=== PATIENT | female | born 1965 | race Caucasian/White ===

== ENCOUNTER 2016-09-10 13:38 | Emergency (ER) | payer BC ==
[~2016-09-10] VITALS: Ht 165.1 cm; Wt 86.1 kg
[~2016-09-10 13:38] MED LIST: CIPROFLOXACIN500 M1 PO; COUMADIN5 MG PO; CYCLOBENZAPRINE10 MG PO; ENDOCET 5-3251 EACH PO; LEXAPRO20 MG PO; LORTAB 7.5/51 TABLET PO; MILLIPRED DP5 MG PO; MOTRIN600 MG PO; MOTRIN800 MG PO; PERCOCET 5/31 TABLET PO; PROMETHAZINE HC25 M1 PO; SKELAXIN800 MG PO; STADOL NASAL2.5 ML NS; XANAX1 MG PO; ZOFRAN4 MG PO
[2016-09-10] MEDS ORDERED: TRAMADOL HCL50 MG PO (14:39)
[2016-09-10] MEDS ORDERED: MOTRIN600 MG PO (14:39)
[2016-09-10] MEDS ORDERED: PREDNISONE50 MG PO (14:39)
[2016-09-10 15:07] VITALS: BP 108/76
== END 2016-09-10 15:07 | disposition home or self-care (01) ==
LOC: EME 13:38
DX: M54.5 Low back pain (principal); Z86.718 Personal history of other venous thrombosis and embolism; Z88.6 Allergy status to analgesic agent
CPT/HCPCS: 99281; 99283

== ENCOUNTER 2017-04-28 19:12 | Emergency (ER) | payer BC ==
[~2017-04-28] VITALS: Ht 165.1 cm; Wt 88.1 kg
[~2017-04-28 19:12] MED LIST changes: +PREDNISONE50 MG PO; +TRAMADOL HCL50 MG PO
[2017-04-28] MEDS ORDERED: MEDROL DOSEPAK4 MG PO (21:53)
[2017-04-28] MEDS ORDERED: PERCOCET 5/31 TABLET PO (21:53)
[2017-04-28 22:05] VITALS: BP 117/75
== END 2017-04-28 22:05 | disposition home or self-care (01) ==
LOC: EME 19:12 → EXP 19:12
DX: M79.605 Pain in left leg (principal); F41.9 Anxiety disorder, unspecified; F32.9 Major depressive disorder, single episode, unspecified; Z86.718 Personal history of other venous thrombosis and embolism; Z79.01 Long term (current) use of anticoagulants; Z88.5 Allergy status to narcotic agent; Z88.8 Allergy status to other drugs, medicaments and biological substances
CPT/HCPCS: 73564; 93971; 99281; 99284

== ENCOUNTER 2017-06-20 00:39 | Inpatient (IN) | payer BC ==
[~2017-06-20] VITALS: Ht 165.1 cm; Wt 87.1 kg
[~2017-06-20 00:39] MED LIST changes: +MEDROL DOSEPAK4 MG PO
[2017-06-20 01:14] LABS: HEMOGLOBIN 13.7 G/DL (11.9-15.5); MCH 31.2 PG (29.0-34.0); MCHC 35.1 G/DL (30.0-36.0); MCV 88.8 FL (83-99); PLATELET COUNT 265 K/uL (156-360); RBC DIS.WIDTH-CV 12.2 % (11.8-14.6); RBC DIS.WIDTH-SD 39.9 % (39-53); RED BLOOD COUNT 4.39 M/uL (3.80-5.20)
[2017-06-20 01:22] LABS: CHLORIDE 107 mEq/L (99-109); POTASSIUM 4.3 mEq/L (3.7-5.4)
[2017-06-20 01:23] LABS: SODIUM 138 mEq/L (136-147)
[2017-06-20 01:24] LABS: GLUCOSE 147 mg/dL (70-99)
[2017-06-20 01:28] LABS: CREATININE 0.8 mg/dL (0.6-1.3); GFR ESTIMATE (CALCULATED) > 59 mL/min/
[2017-06-20 01:29] LABS: UREA NITROGEN (BUN) 15 mg/dL (9-23)
[2017-06-20 01:33] LABS: TROP-I INTERPRETATION NEGATIVE; TROPONIN-I < 0.01 ng/mL (0.0-0.30)
[2017-06-20 06:29] LABS: INTER. NORMALIZED RATIO 1.1
[2017-06-20 06:32] LABS: PTT 29.6 SEC (25-37)
[2017-06-20 09:48] LABS: TROP-I INTERPRETATION NEGATIVE; TROPONIN-I < 0.01 ng/mL (0.0-0.30)
[2017-06-20] MEDS ORDERED: ALPRAZOLAM ER1 MG PO (10:28)
[2017-06-20] MEDS ORDERED: SUMATRIPTAN SU100 MG PO (10:37)
[2017-06-20] MEDS ORDERED: PROMETHAZINE HC25 M1 PO (10:38)
[2017-06-20 13:07] LABS: INTER. NORMALIZED RATIO 1.3
[2017-06-20 14:28] LABS: PTT 156.2 SEC (25-37)
[2017-06-20 15:41] LABS: TROP-I INTERPRETATION NEGATIVE; TROPONIN-I < 0.01 ng/mL (0.0-0.30)
[2017-06-20 17:36] VITALS: BP 150/76
[2017-06-20 20:22] VITALS: BP 131/67
[2017-06-21] VITALS (8 sets, daily range): BP systolic 117–133; BP diastolic 70–80
[2017-06-21 04:22] LABS: HEMATOCRIT 35.6 % (36.0-46.0); HEMOGLOBIN 12.1 G/DL (11.9-15.5); MCH 30.9 PG (29.0-34.0); PLATELET COUNT 236 K/uL (156-360); RBC DIS.WIDTH-CV 12.9 % (11.8-14.6); RED BLOOD COUNT 3.91 M/uL (3.80-5.20); WHITE BLOOD COUNT 8.4 K/uL (4.1-10.2)
[2017-06-21 04:46] LABS: ALBUMIN 3.3 g/dL (3.2-4.8); CHLORIDE 113 mEq/L (99-109); POTASSIUM 4.1 mEq/L (3.7-5.4); SODIUM 139 mEq/L (136-147)
[2017-06-21 04:48] LABS: GLUCOSE 95 mg/dL (70-99); TOTAL PROTEIN 5.7 g/dL (6.4-8.3)
[2017-06-21 04:50] LABS: TOTAL BILIRUBIN 0.4 mg/dL (0.0-1.0)
[2017-06-21 04:52] LABS: ALKALINE PHOSPHATASE 59 IU/L (3-129); CREATININE 0.7 mg/dL (0.6-1.3); GFR ESTIMATE (CALCULATED) > 59 mL/min/
[2017-06-21 04:53] LABS: UREA NITROGEN (BUN) 12 mg/dL (9-23)
[2017-06-21 04:54] LABS: AST (GOT) 16 IU/L (2-34)
[2017-06-21 04:55] LABS: ALT (GPT) 14 IU/L (3-49)
[2017-06-21 21:45] LABS: STOOL OCCULT BLD 1ST SPECIMEN NEGATIVE
[2017-06-22 04:49] VITALS: BP 108/71
[2017-06-22 07:57] VITALS: BP 127/80
[2017-06-22] MEDS ORDERED: XARELTO15 MG PO (10:25)
[2017-06-22] MEDS ORDERED: XARELTO20 MG PO ×2 (10:25→10:46)
[2017-06-25 15:36] LABS: ACTIVATED PROTEIN C RESIST+ 4.4 ratio (>=2.1); DRVVT Mixing Study Interp Not Indicated (()); FACTOR VIII ACTIVITY+ 150 % (50-180); PROTEIN C FUNCTIONAL ACTIVITY+ 113 % (70-180); PTT-LA 198 sec (<=40); Protein S, Free 125 % normal (50-147); dRVVT Screen 34 sec (<=45)
[2017-06-26 11:14] LABS: ANTITHROMBIN III ACTIVITY+ 107 % activi (80-120)
== END 2017-06-22 11:23 | disposition home or self-care (01) | DRG 175 ==
LOC: EME 00:39 → 2EAST 08:34 → EDOF 08:34 → ENRESERV 08:36 → 2EAST 17:16
PROVIDERS: Internal Medicine; Physician Assistant
DX: I26.99 Other pulmonary embolism without acute cor pulmonale (principal); J18.9 Pneumonia, unspecified organism; I82.401 Acute embolism and thrombosis of unspecified deep veins of right lower extremity; J98.11 Atelectasis; F41.9 Anxiety disorder, unspecified; G43.909 Migraine, unspecified, not intractable, without status migrainosus; F32.9 Major depressive disorder, single episode, unspecified; Z79.01 Long term (current) use of anticoagulants; Z86.711 Personal history of pulmonary embolism; Z86.718 Personal history of other venous thrombosis and embolism
CPT/HCPCS: 71046; 71275; 80048; 80053; 81240 90; 82272; 83090 90; 83880; 84484; 85027; 85240 90; 85300 90; 85303 90; 85305 90; 85306 90; 85307 90; 85610; 85613 90; 85730; 85730 90; 86146 90; 86147 90; 93005; 93306; 93970; 99281; 99285; J7030; Q0169

== ENCOUNTER → 2017-08-23 | Outpatient (CLI) | payer BC ==
[~2017-08-23] VITALS: Ht 165.1 cm; Wt 86.2 kg
[~2017-08-23] MED LIST changes: +ALPRAZOLAM ER1 MG PO; +SUMATRIPTAN SU100 MG PO; +XARELTO15 MG PO; +XARELTO20 MG PO
[2017-08-23 13:43] LABS: HEMATOCRIT 39.8 % (36.0-46.0); HEMOGLOBIN 13.8 G/DL (11.9-15.5); MCH 30.8 PG (29.0-34.0); MCHC 34.7 G/DL (30.0-36.0); MCV 88.8 FL (83-99); RBC DIS.WIDTH-CV 11.9 % (11.8-14.6); RBC DIS.WIDTH-SD 38.1 % (39-53); RED BLOOD COUNT 4.48 M/uL (3.80-5.20); WHITE BLOOD COUNT 3.9 K/uL (4.1-10.2)
[2017-08-23 13:44] LABS: PLATELET COUNT 71 K/uL (156-360)
== END | disposition home or self-care (01) ==
LOC: AMB 12:36
PROVIDERS: Internal Medicine Pulmonary Disease
DX: R91.8 Other nonspecific abnormal finding of lung field (principal); I26.99 Other pulmonary embolism without acute cor pulmonale; Z79.01 Long term (current) use of anticoagulants; Z86.718 Personal history of other venous thrombosis and embolism; G43.909 Migraine, unspecified, not intractable, without status migrainosus; Z82.5 Family history of asthma and other chronic lower respiratory diseases; Z82.49 Family history of ischemic heart disease and other diseases of the circulatory system; Z82.3 Family history of stroke; Z80.8 Family history of malignant neoplasm of other organs or systems
CPT/HCPCS: 85027; 85730; 87070; 87116; 87205; 87206; 87278; 88108; 88173; J0461; J2250; J3010

== ENCOUNTER → 2017-09-30 | Outpatient (CLI) | payer BC | END | disposition home or self-care (01) | LOC: CDC 11:49 | DX: R94.31 Abnormal electrocardiogram [ECG] [EKG] (principal) | CPT/HCPCS: 93000 ==

== ENCOUNTER 2017-10-11 10:48 | Day surgery (SDC) | payer BC ==
[~2017-10-11] VITALS: Ht 165.1 cm; Wt 87.1 kg
[~2017-10-11 10:48] MED LIST changes: +IMITREX50 MG PO; +LOVENOX30 MG/0.3 SC
[2017-10-11 11:35] LABS: HEMATOCRIT 40.9 % (36.0-46.0); HEMOGLOBIN 13.5 G/DL (11.9-15.5); MCH 29.5 PG (29.0-34.0); MCV 89.3 FL (83-99); PLATELET COUNT 298 K/uL (156-360); RBC DIS.WIDTH-SD 39.2 % (39-53); RED BLOOD COUNT 4.58 M/uL (3.80-5.20); WHITE BLOOD COUNT 6.1 K/uL (4.1-10.2)
[2017-10-11 11:36] VITALS: BP 128/70
[2017-10-11 11:39] LABS: INTER. NORMALIZED RATIO 1.1
[2017-10-11 11:42] LABS: PTT 31.4 SEC (25-37)
[2017-10-11] MEDS ORDERED: MOTRIN600 MG PO (15:58)
[2017-10-11 16:25] VITALS: BP 131/69
[2017-10-11 17:24] VITALS: BP 133/63
== END 2017-10-11 17:32 | disposition home or self-care (01) ==
LOC: SDC 10:48
PROVIDERS: Thoracic Surgery (Cardiothoracic Vascular Surgery)
PROC: 0BB58ZX Excision of Right Middle Lobe Bronchus, Via Natural or Artificial Opening Endoscopic, Diagnostic (ICD-10-PCS; principal; 2017-10-11)
PROC: 0BD58ZX Extraction of Right Middle Lobe Bronchus, Via Natural or Artificial Opening Endoscopic, Diagnostic (ICD-10-PCS; principal; 2017-10-11)
PROC: 07B74ZX Excision of Thorax Lymphatic, Percutaneous Endoscopic Approach, Diagnostic (ICD-10-PCS; principal; 2017-10-11)
DX: C34.2 Malignant neoplasm of middle lobe, bronchus or lung (principal); C77.1 Secondary and unspecified malignant neoplasm of intrathoracic lymph nodes; Z86.718 Personal history of other venous thrombosis and embolism; Z86.711 Personal history of pulmonary embolism; G43.909 Migraine, unspecified, not intractable, without status migrainosus; Z79.01 Long term (current) use of anticoagulants; Z88.5 Allergy status to narcotic agent; Z88.8 Allergy status to other drugs, medicaments and biological substances; Z82.5 Family history of asthma and other chronic lower respiratory diseases; Z82.49 Family history of ischemic heart disease and other diseases of the circulatory system; Z80.8 Family history of malignant neoplasm of other organs or systems; Z82.3 Family history of stroke
CPT/HCPCS: 85027; 85610; 85730; 86850; 86900; 86901; 88108; 88305; 88341 TC; 88342 TC; J0330; J0690; J1100; J1885; J2250; J2405; J2710; J3010; J7643

== ENCOUNTER 2017-12-14 00:22 | Inpatient (IN) | payer BC ==
[~2017-12-14] VITALS: Ht 165.1 cm; Wt 86.6 kg
[~2017-12-14 00:22] MED LIST changes: +OXYCONTIN10 MG PO; +PRILOSEC OTC20 MG PO; +ROXICODONE5 MG PO
[2017-12-14 00:58] LABS: CHLORIDE 109 mEq/L (99-109); SODIUM 139 mEq/L (136-147)
[2017-12-14 00:59] LABS: GLUCOSE 157 mg/dL (70-99)
[2017-12-14 01:03] LABS: CREATININE 0.8 mg/dL (0.6-1.3); GFR ESTIMATE (CALCULATED) > 59 mL/min/
[2017-12-14 01:04] LABS: HEMATOCRIT 29.5 % (36.0-46.0); HEMOGLOBIN 10.7 G/DL (11.9-15.5); MCHC 36.3 G/DL (30.0-36.0); MCV 85.5 FL (83-99); POTASSIUM 3.2 mEq/L (3.7-5.4); RBC DIS.WIDTH-CV 12.4 % (11.8-14.6); RBC DIS.WIDTH-SD 35.8 % (39-53); RED BLOOD COUNT 3.45 M/uL (3.80-5.20); UREA NITROGEN (BUN) 14 mg/dL (9-23); WHITE BLOOD COUNT 0.9 K/uL (4.1-10.2)
[2017-12-14 01:13] LABS: TROP-I INTERPRETATION NEGATIVE; TROPONIN-I < 0.01 ng/mL (0.0-0.30)
[2017-12-14 01:38] LABS: PLATELET COUNT 128 K/uL (156-360)
[2017-12-14 04:53] LABS: BAND NEUTROPHILS 4.4 % (0-8.0); SEG.NEUTROPHILS 76.7 % (46.0-76.0)
[2017-12-14 04:54] LABS: BASOPHILS 1.3 %; GIANT PLATELETS 1+; LYMPHOCYTES 9.7 % (15.0-45.0); PLAT.SUFFICIENCY ADEQUATE
[2017-12-14 06:37] VITALS: BP 105/74
[2017-12-14 07:39] LABS: TROP-I INTERPRETATION NEGATIVE; TROPONIN-I < 0.01 ng/mL (0.0-0.30)
[2017-12-14 07:50] VITALS: BP 103/62
[2017-12-14] MEDS ORDERED: XANAX1 MG PO (11:48)
[2017-12-14] MEDS ORDERED: ZOFRAN8 MG PO (11:54)
[2017-12-14 13:16] LABS: TROP-I INTERPRETATION NEGATIVE; TROPONIN-I < 0.01 ng/mL (0.0-0.30)
[2017-12-14 16:06] VITALS: BP 124/66
[2017-12-14 21:20] VITALS: BP 113/68
[2017-12-15] VITALS (8 sets, daily range): BP systolic 102–115; BP diastolic 54–75
[2017-12-15 06:56] LABS: HEMATOCRIT 28.5 % (36.0-46.0); HEMOGLOBIN 9.5 G/DL (11.9-15.5); MCHC 33.3 G/DL (30.0-36.0); MCV 89.9 FL (83-99); PLATELET COUNT 103 K/uL (156-360); RBC DIS.WIDTH-CV 13.2 % (11.8-14.6); RED BLOOD COUNT 3.17 M/uL (3.80-5.20); WHITE BLOOD COUNT 1.6 K/uL (4.1-10.2)
[2017-12-15 07:19] LABS: CHLORIDE 110 MEQ/L (99-109); CREATININE 0.7 MG/DL (0.6-1.3); GFR ESTIMATE (CALCULATED) > 59 mL/min/; MAGNESIUM 1.6 mg/dl (1.3-2.7); SODIUM 139 MEQ/L (136-147); UREA NITROGEN (BUN) 4 mg/dL (9-23)
[2017-12-15 07:40] LABS: GLUCOSE 89 mg/dL (70-99); POTASSIUM 4.1 MEQ/L (3.7-5.4)
[2017-12-16 06:12] LABS: HEMATOCRIT 28.3 % (36.0-46.0); HEMOGLOBIN 9.8 G/DL (11.9-15.5); MCH 30.5 PG (29.0-34.0); MCHC 34.6 G/DL (30.0-36.0); MCV 88.2 FL (83-99); PLATELET COUNT 118 K/uL (156-360); RBC DIS.WIDTH-CV 13.3 % (11.8-14.6); RBC DIS.WIDTH-SD 38.5 % (39-53); RED BLOOD COUNT 3.21 M/uL (3.80-5.20); WHITE BLOOD COUNT 2.4 K/uL (4.1-10.2)
[2017-12-16 06:36] LABS: CHLORIDE 108 MEQ/L (99-109); CREATININE 0.6 MG/DL (0.6-1.3); GFR ESTIMATE (CALCULATED) > 59 mL/min/; GLUCOSE 86 mg/dL (70-99); MAGNESIUM 1.6 mg/dl (1.3-2.7); POTASSIUM 3.9 MEQ/L (3.7-5.4); SODIUM 139 MEQ/L (136-147); UREA NITROGEN (BUN) 5 mg/dL (9-23)
[2017-12-16 07:20] VITALS: BP 109/64
[2017-12-16 15:37] VITALS: BP 140/73
[2017-12-16 20:03] VITALS: BP 95/60
[2017-12-16 23:55] VITALS: BP 85/52
[2017-12-16 23:58] VITALS: BP 85/52
[2017-12-17] VITALS (7 sets, daily range): BP systolic 88–112; BP diastolic 58–70
[2017-12-17] MEDS ORDERED: METOCLOPRAMIDE H5 MG PO (09:12)
== END 2017-12-17 10:03 | disposition home or self-care (01) | DRG 809 ==
LOC: EME → EDBD 00:22 → 5EAST 04:40 → EDOF 04:40 → 3EAST 06:04 → 5EAST 12-15 21:25
PROVIDERS: Hospitalist; Internal Medicine
DX: D70.1 Agranulocytosis secondary to cancer chemotherapy (principal); R50.81 Fever presenting with conditions classified elsewhere; T45.1X5A Adverse effect of antineoplastic and immunosuppressive drugs, initial encounter; K92.81 Gastrointestinal mucositis (ulcerative); K22.4 Dyskinesia of esophagus; E83.51 Hypocalcemia; E87.6 Hypokalemia; C34.2 Malignant neoplasm of middle lobe, bronchus or lung; K20.8 Other esophagitis; Y84.2 Radiological procedure and radiotherapy as the cause of abnormal reaction of the patient, or of later complication, without mention of misadventure at the time of the procedure; D61.818 Other pancytopenia; G43.909 Migraine, unspecified, not intractable, without status migrainosus; E66.01 Morbid (severe) obesity due to excess calories; Z68.31 Body mass index [BMI] 31.0-31.9, adult; F41.9 Anxiety disorder, unspecified; Z86.711 Personal history of pulmonary embolism; Z86.718 Personal history of other venous thrombosis and embolism; Z79.01 Long term (current) use of anticoagulants; Z79.899 Other long term (current) drug therapy
CPT/HCPCS: 71046; 71250; 77385; 77386; 80048; 81003; 83605; 83735; 84484; 85007; 85027; 87040; 93005; 99281; 99285; J0692; J1447; J2405; J2543; J3370; J3480; J7030; J7050